=== PATIENT | female | born 1990 | race Two or more races ===

== ENCOUNTER 2017-11-27 09:35 | Inpatient (IN) | payer MEDICAID ==
[~2017-11-27] VITALS: Ht 160 cm; Wt 77.2 kg
[~2017-11-27 09:35] MED LIST: ACET325T14 PO; DOCU-131 PO; DOCU240C31 PO; FERR325T18 PO; IBUP-1222 PO
[2017-11-27] MEDS ORDERED: LACTATED RINGERS 1,000 ML IV SCH (09:51)
[2017-11-27] MEDS ORDERED: OXYTOCIN 30U/ 0.9% NaCL 500ML 500 ML IV ONE (09:51)
[2017-11-27] MEDS ORDERED: D5%-LACTATED RINGERS 1,000 ML IV SCH (09:51)
[2017-11-27] MEDS ORDERED: NEWBORN KIT ONE (09:57)
[2017-11-27] MEDS ORDERED: MISOPROSTOL 200 MCG TABLET ONE (09:58)
[2017-11-27] MEDS ORDERED: OXYTOCIN 30U/ 0.9% NaCL 500ML 500 ML ONE (09:58)
[2017-11-27] MEDS ORDERED: LIDOCAINE/PF 1%, 30ML ONE (09:58)
[2017-11-27] MEDS ORDERED: METOCLOPRAMIDE 5 MG/ML, 2ML IVPush PRN (10:00)
[2017-11-27] MEDS ORDERED: FENTANYL PF 100 MCG/2ML IV PRN (10:00)
[2017-11-27] MEDS ORDERED: ONDANSETRON 2MG/ML, 2ML IVPush PRN (10:00)
[2017-11-27] MEDS ORDERED: FENTANYL PF 100 MCG/2ML IVPush PRN (10:00)
[2017-11-27] MEDS ORDERED: SODIUM CITRATE/CITRIC ACID 30 ML UDC PO PRN (10:00)
[2017-11-27] MEDS ORDERED: TERBUTALINE 1 MG/ML, 1ML IVPush PRN (10:00)
[2017-11-27 10:14] VITALS: BP 135/85
[2017-11-27 10:20] LABS: BASOPHILS # (AUTO) 0.08 x10^3/uL (0-0.1); BASOPHILS % (AUTO) 1 % (0-1); EOSINOPHILS # (AUTO) 0.04 x10^3/uL (0-0.4); EOSINOPHILS % (AUTO) 0 % (1-7); LYMPHOCYTES # (AUTO) 2.01 x10^3/uL (1-3.4); LYMPHOCYTES % (AUTO) 16 % (22-44); MD NO; MEAN CORPUSCULAR HEMOGLOBIN 22.2 pg (27.0-34.8); MEAN CORPUSCULAR HGB CONC 32.3 g/dL (32.4-35.8); MEAN CORPUSCULAR VOLUME 68.7 fL (80-100); MEAN PLATELET VOLUME 7.8 fL (7.4-10.4); MONOCYTES # (AUTO) 0.52 x10^3/uL (0.2-0.8); MONOCYTES % (AUTO) 4 % (2-9); NEUTROPHILS # (AUTO) 9.63 x10^3/uL (1.8-6.8); NEUTROPHILS % (AUTO) 79 % (42-75); PLATELET COUNT 327 x10^3/uL (130-400); RED BLOOD COUNT 4.48 x10^6/uL (3.82-5.3); RED CELL DISTRIBUTION WIDTH 19.5 % (9.6-15.2)
[2017-11-27] MEDS ORDERED: FENTANYL PF 100 MCG/2ML ONE (11:27)
[2017-11-27] MEDS: OXYTOCIN 30U/ 0.9% NaCL 500ML 500 ML IV SCH ×2 (12:17→22:17)
[2017-11-27] MEDS ORDERED: ONDANSETRON 2MG/ML, 2ML IV PRN (12:30)
[2017-11-27] MEDS ORDERED: MISOPROSTOL 200 MCG TABLET PR PRN (12:30)
[2017-11-27] MEDS ORDERED: IBUPROFEN 600 MG TABLET PO PRN (12:30)
[2017-11-27] MEDS ORDERED: OXYcodone IR 5MG TABLET PO PRN (12:30)
[2017-11-27] MEDS ORDERED: ACETAMINOPHEN 325 MG TABLET PO PRN (12:30)
[2017-11-27] MEDS ORDERED: OXYcodone/APAP 5/325MG TABLET PO PRN (12:30)
[2017-11-27] MEDS ORDERED: DOCUSATE 100 MG CAPSULE PO PRN (12:30)
[2017-11-27 14:20] VITALS: BP 101/64
[2017-11-27 19:20] VITALS: BP 110/74
[2017-11-27 20:31] LABS: BASOPHILS # (AUTO) 0.18 x10^3/uL (0-0.1); BASOPHILS % (AUTO) 1 % (0-1); EOSINOPHILS # (AUTO) 0.03 x10^3/uL (0-0.4); EOSINOPHILS % (AUTO) 0 % (1-7); LYMPHOCYTES # (AUTO) 2.27 x10^3/uL (1-3.4); LYMPHOCYTES % (AUTO) 13 % (22-44); MD NO; MEAN CORPUSCULAR HEMOGLOBIN 22.7 pg (27.0-34.8); MEAN CORPUSCULAR HGB CONC 32.7 g/dL (32.4-35.8); MEAN CORPUSCULAR VOLUME 69.4 fL (80-100); MEAN PLATELET VOLUME 8.1 fL (7.4-10.4); MONOCYTES # (AUTO) 0.63 x10^3/uL (0.2-0.8); MONOCYTES % (AUTO) 4 % (2-9); NEUTROPHILS # (AUTO) 13.78 x10^3/uL (1.8-6.8); NEUTROPHILS % (AUTO) 82 % (42-75); PLATELET COUNT 318 x10^3/uL (130-400); RED BLOOD COUNT 4.19 x10^6/uL (3.82-5.3); RED CELL DISTRIBUTION WIDTH 19.4 % (9.6-15.2)
[2017-11-28 00:35] VITALS: BP 118/79
[2017-11-28 05:25] VITALS: BP 110/73
[2017-11-28 07:20] VITALS: BP 110/72
[2017-11-28] MEDS ORDERED: PRENATAL VIT/IRON/FA 1 EACH TABLET PO SCH (09:00)
[2017-11-28] MEDS ORDERED: IBUP-1222 PO (10:31)
== END 2017-11-28 14:57 | disposition home or self-care (01) | DRG 775 ==
LOC: LDOP 09:35 → LDIP 09:56 → 2NW 14:24
PROVIDERS: ADMIT Obstetrics & Gynecology; ATTEND Obstetrics & Gynecology
PROC: 10E0XZZ Delivery of Products of Conception, External Approach (ICD-10-PCS; principal; 2017-11-27)
DX: O80 Encounter for full-term uncomplicated delivery (principal); Z3A.39 39 weeks gestation of pregnancy; Z37.0 Single live birth
CPT/HCPCS: 36415; 85025; 86592; 86850; 86900; 87806; J3010; G0475; J2590; J7120